=== PATIENT | male | born 1940 | race Caucasian/White ===

== ENCOUNTER 2025-03-16 16:07 | Inpatient (IN) | payer MEDICARE ==
[~2025-03-16] VITALS: Ht 167.6 cm; Wt 59.9 kg
[2025-03-16] MEDS: IV NORMAL SALINE 1000 ML BAG IV ONE (16:15)
[2025-03-16 17:03] LABS: PLATELET COUNT (AUTO) 181 K/uL (152-348); RED BLOOD CELL COUNT(AUTO) 4.29 MIL/uL (4.06-5.63); RED CELL DISTRIBUTION WIDTH 14.0 % (12.1-16.2); WHITE BLOOD COUNT (AUTO) 10.8 K/uL (3.6-10.2)
[2025-03-16 17:13] LABS: CREATININE 1.7 mg/dL (0.6-1.3); SODIUM SERUM 145 mmol/L (136-145); UREA NITROGEN, BLOOD 35 mg/dL (7-18)
[2025-03-16 17:24] LABS: ASPARTATE AMINOTRANSFERASE 22 U/L (15-37); TOTAL PROTEIN, SERUM 7.1 g/dL (6.4-8.2)
[2025-03-16] MEDS ORDERED: ONDANSETRON 4 MG/2 ML VIAL IV PRN (18:30)
[2025-03-16] MEDS ORDERED: MORPHINE SULFATE 2 MG/1 ML DISP.SYRIN IVP PRN (18:30)
[2025-03-16] MEDS ORDERED: FINA5TAB11 PO (18:32)
[2025-03-16] MEDS ORDERED: PRAV40TA3 PO (18:32)
[2025-03-16] MEDS ORDERED: MIRT-93 PO (18:32)
[2025-03-16] MEDS ORDERED: VENL150T PO (18:32)
[2025-03-16] MEDS ORDERED: TAMS-3 PO (18:32)
[2025-03-16] MEDS ORDERED: LEVO50TA8 PO (18:32)
[2025-03-16] MEDS ORDERED: VENL-192 PO (18:32)
[2025-03-16 19:46] LABS: *BLOOD, URINE 3+ (NEGATIVE); *CLARITY,URINE TURBID (CLEAR); *COLOR,URINE Other (YELLOW); *KETONES,URINE NEGATIVE (NEGATIVE); *PROTEIN,URINE 2+ (NEGATIVE); *UROBILINOGEN,URINE 0.2 E.U./dl (NORMAL); LEUKOCYTE ESTERASE ,URINE TRACE (NEGATIVE); NITRITE, URINE POSITIVE (NEGATIVE); UGLUCOSE NEGATIVE (NEGATIVE)
[2025-03-16 19:52] LABS: *BILIRUBIN,URIN 1+ (NEGATIVE)
[2025-03-16 20:27] VITALS: BP 100/51
[2025-03-16] MEDS: ACETAMINOPHEN 325 MG TABLET PO PRN (21:21)
[2025-03-16] MEDS: IV NS 1000 ML 1,000 ML IV SCH (21:21)
[2025-03-16 21:36] VITALS: BP 152/87; TEMP 97.7; O2SAT 97
[2025-03-17 00:24] VITALS: BP 138/74; TEMP 97.6; O2SAT 98
[2025-03-17 04:30] VITALS: BP 141/80; TEMP 97.6; O2SAT 97
[2025-03-17] MEDS: IV NS 1000 ML 1,000 ML IV PRN (06:12)
[2025-03-17 06:37] LABS: PLATELET COUNT (AUTO) 180 K/uL (152-348); RED BLOOD CELL COUNT(AUTO) 4.20 MIL/uL (4.06-5.63); RED CELL DISTRIBUTION WIDTH 14.1 % (12.1-16.2); WHITE BLOOD COUNT (AUTO) 8.0 K/uL (3.6-10.2)
[2025-03-17 07:05] LABS: ASPARTATE AMINOTRANSFERASE 24 U/L (15-37); CREATININE 1.4 mg/dL (0.6-1.3); SODIUM SERUM 140 mmol/L (136-145); TOTAL PROTEIN, SERUM 6.9 g/dL (6.4-8.2); UREA NITROGEN, BLOOD 25 mg/dL (7-18)
[2025-03-17 08:00] VITALS: BP 135/68; TEMP 98.6; O2SAT 97
[2025-03-17] MEDS: HEPARIN SODIUM,PORCINE 5,000 UNITS/ML VIAL SQ SCH (09:22)
[2025-03-17 11:57] VITALS: BP 132/64; TEMP 97.7; O2SAT 97
== END 2025-03-17 14:00 | DRG 312 ==
LOC: ER 16:07 → TELE3 20:43 → MEDSURG3 03-17 08:50
PROVIDERS: ADMIT Internal Medicine; ATTEND Nurse Practitioner Acute Care
DX: I95.2 Hypotension due to drugs (principal); N17.0 Acute kidney failure with tubular necrosis; E86.0 Dehydration; T41.0X5A Adverse effect of inhaled anesthetics, initial encounter; Y92.530 Ambulatory surgery center as the place of occurrence of the external cause; N18.9 Chronic kidney disease, unspecified; I12.9 Hypertensive chronic kidney disease with stage 1 through stage 4 chronic kidney disease, or unspecified chronic kidney disease; N40.0 Benign prostatic hyperplasia without lower urinary tract symptoms; F03.90 Unspecified dementia, unspecified severity, without behavioral disturbance, psychotic disturbance, mood disturbance, and anxiety; I25.10 Atherosclerotic heart disease of native coronary artery without angina pectoris; E78.5 Hyperlipidemia, unspecified; R55 Syncope and collapse; Z88.1 Allergy status to other antibiotic agents; Z95.1 Presence of aortocoronary bypass graft; Z79.890 Hormone replacement therapy; Z79.899 Other long term (current) drug therapy; Z98.890 Other specified postprocedural states
CPT/HCPCS: 36415; 70450; 71045; 84100; 84484; 85025; 85730; 86850; 86900; 86901; 87086; G0378; J1644; J7040